=== PATIENT | female | born 1935 | race Caucasian/White ===

== ENCOUNTER 2018-07-14 19:30 | Emergency (ER) | payer MEDICARE, OTHER, SELFPAY ==
[2018-07-14 19:43] VITALS: BP 130/76; PULSE 72; RESP 19; TEMP 36.6; O2SAT 94; BMI 26.4
--- NOTE | 2018-07-14 19:56 | ED_ITS ---
HPI - Fall General Chief Complaint: Fall Stated Complaint: Fell from bed Time Seen by Provider: 07/14/18 19:46 Source: patient Mode of arrival: ambulatory Limitations: no limitations History of Present Illness HPI Narrative: 82-year-old female with a history dementia here with her . Her states that she was sitting on the edge of the bed when she slid out of the bed and landed on her bottom on the floor. Did not hit her head. He states that she would not walk at home. She recently had a right hip procedure. No interventions prior to arrival. Related Data Home Medications Medication Instructions Recorded Confirmed levothyroxine [Synthroid] 125 mcg PO SEE INSTRUCTIONS #0 06/15/16 VITAMIN D (Vitamin D3) 1,000 units PO QDAY #0 07/07/16 losartan 50 mg PO QDAY #0 07/07/16 omega 5-ryg-oaa-fish oil [Fish Oil] 1,200 mg PO QDAY #0 07/07/16 acetaminophen 500 mg #0 09/23/16 donepezil [Aricept] #0 09/23/16 Previous Rx's Medication Instructions Recorded warfarin [Coumadin] 5 mg PO QDAY17 #30 tab 09/25/16 Allergies Allergy/AdvReac Type Severity Reaction Status Date / Time No Known Allergies Allergy Uncoded 09/12/17 12:12 Review of Systems Review of Systems Provided by Musculoskeletal Comments: Complaining of back pain Integumentary/Breasts Denies rash Neurologic Comments: No change from baseline Hematologic/Lymphatic Comments: On warfarin Exam Initial Vital Signs Initial Vital Signs: Vital Signs Temperature 97.9 F 07/14/18 19:43 Pulse Rate 72 07/14/18 19:43 Respiratory Rate 19 07/14/18 19:43 Blood Pressure 130/76 07/14/18 19:43 Pulse Oximetry 94 07/14/18 19:43 Const General: comfortable Orientation: alert, awake and confused HENMT Head: normal to inspection and normocephalic Resp Effort & Inspection: normal respiratory effort Skin Lesions: no lesions Rashes: no rashes Neuro Other: History of dementia unchanged from baseline per Extrem Other: Full range of motion bilateral hips. Psych Appearance: grossly normal and well kempt [facility] Medical History Dementia (Acute) Hypothyroid (Acute) Surgical History History of total right hip arthroplasty (Acute) Social History Smoking Status: Former smoker Social History Smoking Status: Former smoker Course Orders Ordered: ED Orders 07/14/18 20:07 XR lumbar spine 2-3V Stat XR pelvis 1-2V Stat Vital Signs - 8 hr 07/14/18 19:43 Temperature 97.9 F Pulse Rate 72 Respiratory Rate 19 Blood Pressure 130/76 Pulse Oximetry 94 MDM - Fall MDM Narrative Medical decision making narrative: We were unable to obtain x-rays secondary to the patient's cooperation. She was able to get up and ambulate here in the emergency department without any problems. She did not hit her head per her . No change in baseline of her neurologic status. I do not feel that we need to push the issue with the x-rays given the fact that she can ambulate. Informed the that if she seems to change he can bring her back for further evaluation. Discharge Plan Departure Patient Disposition: Home Clinical Impression: Fall from bed Qualifiers: Encounter type: initial encounter Qualified Code(s): W06.XXXA - Fall from bed, initial encounter Instructions: How to Prevent Falls Activity Restrictions/Additional Instructions: Recommend you contact her primary care doctor for a follow-up. Continue all of her medications. Return to the emergency department for any new or worsening symptoms Prescriptions: No Action levothyroxine [Synthroid] 50 MCG tablet 125 mcg PO SEE INSTRUCTIONS Qty: 0 RF: 0 losartan 50 MG tablet 50 mg PO QDAY Qty: 0 RF: 0 VITAMIN D (Vitamin D3) 1,000 units PO QDAY Qty: 0 RF: 0 omega 0-tyg-fpt-fish oil [Fish Oil] 1,000 MG capsule 1,200 mg PO QDAY Qty: 0 RF: 0 donepezil [Aricept] 5 MG tablet Qty: 0 RF: 0 acetaminophen 160 MG/5 ML liquid 500 mg Qty: 0 RF: 0 warfarin [Coumadin] 5 MG tablet 5 mg PO QDAY17 Qty: 30 RF: 0 Referrals: Claudette Gracia PA-C [Primary Care Provider] -
--- NOTE | 2018-07-14 20:17 | PC.NURSE ---
Patient denies all pain. Does not understand why she is here. patient unable to cooperate for xrays. Patient hits at any staff member that is in room and grabs at staff body.
--- NOTE | 2018-07-14 20:54 | PC.NURSE ---
Pt is up in room and ambulating without difficulty. Pt denies pain. Dr Quispe in room discussing with dispo with pt and .
== END 2018-07-14 21:21 | disposition home or self-care (01) ==
PROVIDERS: Emergency Provider Emergency Medicine; Family Provider Physician Assistant; PCP Physician Assistant
DX: R52 Pain, unspecified (principal); W06.XXXA Fall from bed, initial encounter
CPT/HCPCS: 72100; 72170; 99282

== ENCOUNTER → 2019-01-14 14:44 | Outpatient (CLI) | payer MEDICARE, OTHER, SELFPAY ==
[2019-01-14 15:41] LABS: Add Manual Diff / Slide Review NO; Basophils Absolute Auto 0 /uL (0-100); Basophils Percent Auto 0.7 % (0-2); Eosinophils Absolute Auto 200 /uL (0-450); Eosinophils Percent Auto 2.4 % (2-4); Hematocrit 40.7 % (36-46); Hemoglobin 13.6 g/dL (12.0-16.0); Lymphocytes Absolute Auto 2700 /uL (1100-4500); Lymphocytes Percent Auto 40.3 % (25-40); Mean Corpuscular HGB Conc 33.5 % (30-36); Mean Corpuscular Hemoglobin 27.7 PG (26-34); Mean Corpuscular Volume 82.8 fL (80-100); Monocytes Absolute Auto 500 /uL (0-900); Monocytes Percent Auto 7.4 % (3-14); Neutrophils Absolute Auto 3200 /uL (1500-7000); Neutrophils Percent Auto 49.2 % (50-75); Platelet Count 272 X10^3/uL (150-400); Red Blood Cell Count 4.92 X10^6/uL (4.0-5.2); Red Cell Distribution Width 13.4 % (11.6-14.8); White Blood Cell Count 6.6 X10^3/uL (4.5-11.0)
[2019-01-14 15:47] LABS: Appearance Urine UA CLOUDY; Bilirubin Urine UA NEGATIVE (NEGATIVE); Color Urine UA YELLOW; Glucose Urine UA NEGATIVE (Negative); Ketones Urine UA NEGATIVE (NEGATIVE); Leukocyte Esterase Urine UA 2+ (NEGATIVE); Nitrite Urine UA POSITIVE (Negative); Occult Blood Urine UA 1+ (Negative); Protein Urine UA 1+ (Negative); pH Urine UA 6.5 (4.5-8.0)
[2019-01-14 16:18] LABS: RBC Urine 1-5/HPF (0-5/HPF)
[2019-01-14 16:19] LABS: Bacteria Urine Many (>30); Culture Indicated Urine Specimen Cultured; Squamous Epithelial Cell Urine 5-10 /HPF (0-5/HPF); WBC Urine 30-100/HPF (0-5/HPF)
[2019-01-14 16:38] LABS: Alanine Aminotransferase 15 IU/L (9-52); Albumin 4.2 g/dL (3.5-5.0); Albumin Globulin Ratio 1.4 (1.0-2.8); Alkaline Phosphatase 43 U/L (38-126); Aspartate Aminotransferase 27 IU/L (14-36); BUN Creatinine Ratio 16.4 (6-22); Bilirubin Total 1.1 mg/dL (0.2-1.3); Blood Urea Nitrogen 18 mg/dL (7-17); Carbon Dioxide 29 mmol/L (22-32); Chloride 102 mmol/L (98-107); Estimated Glomerular Filt Rate 47.6 mL/min (>60); Globulin 3.1 g/dL (1.7-4.1); Glucose 126 mg/dL (80-110); HEMOLYSIS < 15 (0-50); Potassium 3.4 mmol/L (3.4-5.1); Sodium 141 mmol/L (137-145); Total Protein 7.3 g/dL (6.3-8.2)
[2019-01-14 17:08] LABS: Thyroid Stimulating Hormone < 0.02 uIU/mL (0.47-4.68)
[2019-01-16 14:51] LABS: Parathyroid Hormone Int 25 pg/mL (14-64)
[2019-01-18 12:07] LABS: Vit B12 Binding Capacity unsat 729 pg/mL (650-1340)
[2019-01-19 15:14] LABS: Ionized Calcium 5.4 mg/dL (4.8-5.6)
== END ==
PROVIDERS: Family Provider Physician Assistant; PCP Physician Assistant; Visit Provider Internal Medicine
DX: E83.52 Hypercalcemia (principal); F03.91 Unspecified dementia, unspecified severity, with behavioral disturbance; R46.89 Other symptoms and signs involving appearance and behavior; E03.9 Hypothyroidism, unspecified
CPT/HCPCS: 36415; 80053; 81001; 82330; 82608; 83970; 84443; 85025; 87077; 87086; 87186

== ENCOUNTER → 2019-04-29 18:42 | Outpatient (ROUT) | payer MEDICARE, OTHER, SELFPAY | PROVIDERS: PCP Physician Assistant; Visit Provider Internal Medicine | DX: R35.0 Frequency of micturition (principal) | CPT/HCPCS: 87086 ==

== ENCOUNTER → 2020-09-03 18:34 | Outpatient (ROUT) | payer MEDICARE, OTHER, SELFPAY ==
[2020-09-03 18:52] LABS: Add Manual Diff / Slide Review NO; Basophils Absolute Auto 100 /uL (0-100); Basophils Percent Auto 0.9 % (0-2); Eosinophils Absolute Auto 100 /uL (0-450); Eosinophils Percent Auto 1.2 % (2-4); Hematocrit 41.4 % (36-46); Hemoglobin 13.5 g/dL (12.0-16.0); Lymphocytes Absolute Auto 2500 /uL (1100-4500); Mean Corpuscular HGB Conc 32.6 % (30-36); Mean Corpuscular Hemoglobin 28.1 PG (26-34); Mean Corpuscular Volume 86.2 fL (80-100); Monocytes Absolute Auto 600 /uL (0-900); Monocytes Percent Auto 8.5 % (3-14); Neutrophils Absolute Auto 3900 /uL (1500-7000); Neutrophils Percent Auto 54.4 % (50-75); Platelet Count 264 X10^3/uL (150-400); Red Cell Distribution Width 13.3 % (11.6-14.8); White Blood Cell Count 7.2 X10^3/uL (4.5-11.0)
[2020-09-03 19:18] LABS: Alanine Aminotransferase 14 IU/L (<35); Albumin 4.3 g/dL (3.5-5.0); Albumin Globulin Ratio 1.5 (1.0-2.8); Alkaline Phosphatase 50 U/L (38-126); Aspartate Aminotransferase 23 IU/L (14-36); Bilirubin Total 1.4 mg/dL (0.2-1.3); Blood Urea Nitrogen 34 mg/dL (7-17); Calcium 10.3 mg/dL (8.4-10.2); Carbon Dioxide 30 mmol/L (22-32); Chloride 102 mmol/L (98-107); Estimated Glomerular Filt Rate 52.8 mL/min (>60); Globulin 2.8 g/dL (1.7-4.1); Glucose 125 mg/dL (80-110); HEMOLYSIS < 15 (0-50); Potassium 3.8 mmol/L (3.4-5.1); Sodium 142 mmol/L (137-145); Total Protein 7.1 g/dL (6.3-8.2)
[2020-09-03 19:41] LABS: TSH w/ Reflex to FT4 < 0.02 uIU/mL (0.47-4.68)
[2020-09-03 20:18] LABS: Free T4, Direct Thyroxine 2.02 ng/dL (0.78-2.19)
== END ==
PROVIDERS: PCP Physician Assistant; Visit Provider Internal Medicine
DX: R53.1 Weakness (principal)
CPT/HCPCS: 80053; 84439; 84443; 85025